=== PATIENT | male | born 1945 | race Caucasian/White ===

== ENCOUNTER 2021-07-18 16:05 | Inpatient (IN) | payer MEDICARE, OTHER ==
[~2021-07-18] VITALS: Ht 182.9 cm; Wt 63.7 kg
[2021-07-18 17:00] VITALS: BP 191/100; PULSE 81; TEMP 97.8
--- NOTE | 2021-07-18 18:29 | NUR ---
Pt has recently arrived to the floor via EMS. Pt was in his clothing which was saturated with urine. Pt was able to move over to the bed without any assistance scooting from EMS cart. Pt tolerated this with no issues. Pt does have a left leg prosthesis which he removed, pt cleaned up and clean gown applied. Dr Alba has been in to see pt. Pt BP is elevated, Dr Alba aware. Pt stated that he has not taken any of his medications for over 2 years. Discussed him taking medications here and he said that he would but they won't do any good. Pt does not have good skin condition. Coccyx is not red at all and back side looks okay. Arms have several areas. Right elbow is skin tear from his fall about a week ago. He does have a sore to his right upper arm, pt reports from his covid vaccine. he also has a scratch to his left arm, he reporst it is from a cat. SEBASTIÁN Banks in with pt now
[2021-07-18 18:37] LABS: BASO # 0.1 K/mm3 (0.0-0.2); BASO % 1.1 % (0.0-2.0); EOS # 0.3 K/mm3 (0.0-0.7); EOS % 3.9 % (0.0-4.0); GRAN # 5.3 K/mm3 (1.4-6.5); GRAN % 70.5 % (42.2-75.2); HEMATOCRIT 46.6 % (42.0-52.0); HEMOGLOBIN 15.1 g/dl (13.5-18.0); LYMPH # 1.2 K/mm3 (1.2-3.4); LYMPH % 16.1 % (20.0-51.0); MEAN CELL VOLUME 90 fl (80.0-100.0); MEAN CORPUSCULAR HEMOGLOBIN 29 pg (27-31); MEAN CORPUSCULAR HGB CONC 32 g/dl (33.0-37.0); MEAN PLATELET VOLUME 9.8 fl (7.4-10.4); MONO # 0.6 K/mm3 (0.1-0.6); PLATELET COUNT 351 K/mm3 (130-400); RED BLOOD COUNT 5.19 M/mm3 (4.20-5.60); REDCELL DISTRIBUTION WIDTH-CV 13.9 % (11.5-14.5)
[2021-07-18 18:44] LABS: INR 1.1 (0.8-3.0); PROTHROMBIN TIME 12.4 SECONDS (9.7-12.8)
[2021-07-18 18:53] LABS: ALBUMIN 3.5 gm/dL (3.4-4.8); BILIRUBIN,TOTAL 0.6 mg/dL (0.2-1.2); CALCIUM 9.2 mg/dL (8.4-10.2); CREATININE, serum 0.77 mg/dL (0.72-1.25); POTASSIUM 4.5 mmol/L (3.5-4.5); TOTAL PROTEIN 6.8 gm/dL (6.2-8.1)
[2021-07-18 19:41] LABS: COLLECTION METHOD CLEAN CATCH
[2021-07-18 19:59] LABS: MUCOUS Present (NOT PRESENT); PH 6 (5-8); SQUAMOUS EPITHELIAL None Seen /hpf (0-10); URINE APPEARANCE Cloudy (CLEAR/HAZY); URINE BACTERIA Rare /hpf (NONE SEEN); URINE BILIRUBIN Negative (NEGATIVE); URINE BLOOD Negative (NEGATIVE); URINE COLOR Yellow (YELLOW); URINE GLUCOSE Negative (NEGATIVE); URINE KETONE Negative (NEGATIVE); URINE LEUKOCYTE ESTERASE 3+ (NEGATIVE); URINE NITRATE Positive (NEGATIVE); URINE PROTEIN(semi-quant) Negative (NEGATIVE); URINE UROBILINOGEN Negative (NEGATIVE)
[2021-07-18 20:05] VITALS: BP 157/67; PULSE 78; TEMP 98.8
[2021-07-19] VITALS (13 sets, daily range): BP systolic 121–154; BP diastolic 67–85; PULSE 54–87; TEMP 68–98.2
--- NOTE | 2021-07-19 00:20 | NUR ---
Received report from day shift. Patient alert and oriented. Patient here for right femur fracture. Assessment performed. Patient has multiple skin tears and abrasions along back and arms. PM meds administered. Patient resting in bed with call light near. Instructed on NPO at midnight.
--- NOTE | 2021-07-19 08:08 | NUR ---
Patient has below the knee ambutation on left leg, so no pedal pulses performed. States tear on right elbow, abression Right arm, small abrasion noted on back side
--- NOTE | 2021-07-19 09:30 | NUR ---
TELE CALLED AND REPORTED PATIENT WENT FROM [facility] IN THE -[facility] TO [facility] IN THE -'S. ASYMPTOMATIC. PATIENT HAS BEEN CLEARED BY CARDS FOR SURGERY TODAY. HOSPITALIST NOTIFIED.
--- NOTE | 2021-07-19 12:47 | NUR ---
Patient resting comfortable in bed, bed in low position call light in place. Resident is not complaining of pain, vitals signs WNL Will continue to monitor patient throughout shift.
--- NOTE | 2021-07-19 13:56 | NUR ---
First visit from the world renowned chef and restaurant owner. No needs right now.
--- NOTE | 2021-07-19 14:10 | NUR ---
PATIENT IS INCREASINGLY AGGITATED/CONFUSED. PATIENT HAD A HARD TIME SAYING WHAT HE WANTED TO SAY AND IS SLURRING HIS WORDS. PATIENT WAS FINALLY ABLE TO EXPRESS HIS CONCERN FOR HIS HORSES AND THAT THEY NEED FEED/WATERED. CALLED AND LEFT MESSAGE FOR FAMILY, AWAITING A RETURN CALL. PATIENT DOESN'T SEEMS TO REMEMBER OR CARE ABOUT HIS BROKEN LEG. STAFF WAS ABLE TO CALM HIM DOWN FOR NOW. WILL MONITOR.
--- NOTE | 2021-07-19 14:44 | NUR ---
Pharmaceutical Sales Specialist met with patient to discuss discharge planning. Patient lives alone in [place], [place] but advised his son, Mac (ph#[phone]) lives on the property. Patient sees Dr. Arana for primary care and obtains medications from [facility] in [place]. Patient has a history of left BKA and uses a prosthesis. Patient also has a wheelchair and walker at home. Patient reports that he is normally independent with ADLS. Patient reports his son is his DPOA-HC. SW discussed post acute rehab with patient who questioned the need for rehab then invited SW to feel his arm muscles. Patient does not think he will need rehab. Patient to have surgery today, then will have PT/OT eval. Discharge Plan: Will likely need placement
--- NOTE | 2021-07-19 14:50 | NUR ---
PATIENT GOING DOWN TO OR VIA BED. CONSENT ON CHART. PRE-OP FLUIDS INFUSING VIA GRAVITY. TELE NOTIFIED OF PATIENT GOING TO OR. PATIENT OFF FLOOR.
--- NOTE | 2021-07-19 17:20 | NUR ---
PATIENT IS BACK IN ROOM 325 POST OP. PATIENT IS VERY DROWSY AND CONFUSED. PATIENT SLURRING WORDS AND FALLING ASLEEP DURING ASSESSMENT. PACU REPORTED PATIENT DIDN'T KNOW WHERE HE WAS OR WHAT YEAR IT WAS. PATIENT BECOMES AGGITATED FROM TIME TO TIME AND TRIES TO GET UP. BEFORE GOING DOWN TO SURGERY PATIENT STATED "I USUALLY WAKE UP IN RESTRAINTS". WILL MONITOR COGNITION. VSS. PATIENT APPEARS COMFORTABLE WITH NO NEEDS AT THIS TIME. PACU ALSO REPORTED HE COUGHED UP THICK, GREEN MUCUS WHEN COUGHING. NO COUGHING AT THIS TIME. RIGHT HIP DRESSING IS CD&I WITH GAUZE & TEGA. SCD'S TO RLE. LEFT BKA HISTORY. HEAD TO TOE ASSESSMENT COMPLETE. PATIENT SLEEPING NOW. CALL LIGHT IN REACH. BED ALARM ON. ROOM ACCROSS FROM NURSING STATION DUE TO HIGH FALL RISK.
--- NOTE | 2021-07-19 18:40 | NUR ---
DURING SHIFT REPORT, TELE CALLED REPORTING PATIENT WAS OFF HIS LEADS. IN A SHORT AMOUNT OF TIME PATIENT PULLED OFF HIS TELE, PULLED OUT HIS IV SITE, TOOK HIS B/P CUFF OFF AND WAS ATTEMPTING TO GET UP. PATIENT 2-3 ASSIST UP IN BED AND TO GET CLEANED UP. TELE BACK ON. NEW IV SITE STARTED INTO LEFT AC WITH POST OP FLUIDS INFUSING. POST OP VITALS NOW BACK ON. PATIENT RE-ORIENTED. BED ALARM ON. CALL LIGHT IN REACH. MITTS AT BEDSIDE IF NEEDED. REPORTING OFF TO PRESCHOOL HEAD TEACHER.
--- NOTE | 2021-07-19 20:00 | NUR ---
Pt. sitting up in bed. Pt. is alert and confused. IV to lt. ac patent, IV fluids infusing. Dressing to rt. hip CDI. Pt. denies pain but grimices severely with movement. Will give pain meds per orders. Pt. denies further needs, call light within reach. Bed alarm on.
[2021-07-20 03:44] VITALS: BP 153/77; PULSE 72; TEMP 98.4
[2021-07-20 06:44] LABS: INR 1.2 (0.8-3.0); PROTHROMBIN TIME 13.8 SECONDS (9.7-12.8)
[2021-07-20 06:52] LABS: CALCIUM 8.4 mg/dL (8.4-10.2); CREATININE, serum 0.71 mg/dL (0.72-1.25); POTASSIUM 4.3 mmol/L (3.5-4.5)
[2021-07-20 07:53] VITALS: BP 125/67; PULSE 72; TEMP 98.2
--- NOTE | 2021-07-20 10:35 | NUR ---
Patient sitting in recliner with assistance from pt, he is alert and oriented x3, pain controlled tolerated vital signs WNL, pt is comforatble call light in place. Will continue to monitor resident throughout shift.
[2021-07-20 11:37] VITALS: BP 110/61; PULSE 82; TEMP 98.2
--- NOTE | 2021-07-20 14:35 | NUR ---
Chief Executive contacted patient's son, Mac to discuss discharge planning. SW reviewed PT/OT recommendation for post acute rehab. Mac is in agreement with rehab for patient, however he advised patient would likely resist this. SW followed up with patient to review PT/OT recommendation. Patient states he has been to both [facility] and [facility] in the past before and would like referrals sent to both places. SW contacted [facility], [facility], and [facility] and faxed referrals. Esmer at [facility] advised they could possibly take over the weekend, but it depends day to day. Esmer requested call made to [facility] line (#[phone]) to check on availability over the weekend if patient ready to discharge. Discharge Plan: Pending referrals to [facility], [facility] and [facility]
--- NOTE | 2021-07-20 15:11 | NUR ---
CHRIST Lawler contacted Rel[facility] Dispatcher and advised patient stated his first preference is [facility]. SW contacted Delphine, Medical Dir at [facility] who advised they can accept patient but cannot take admissions over the weekend.
[2021-07-20 15:49] VITALS: BP 127/57; PULSE 72; TEMP 98
[2021-07-20 20:20] VITALS: BP 123/68; PULSE 71; TEMP 97.7
--- NOTE | 2021-07-20 21:00 | NUR ---
PT IN BED, CONFUSED BUT COOPERATIVE. TAKES HS MEDS WITHOUT PROBLEM. IVF TO LEFT AC DC'D, NO ORDER. ROCEPHIN GIVEN IV PER ORDER. VOIDING PER URINAL. BED ALARM ON.
[2021-07-21] VITALS (7 sets, daily range): BP systolic 138–181; BP diastolic 57–79; PULSE 72–93; TEMP 97.5–98.6
--- NOTE | 2021-07-21 00:10 | NUR ---
PT HAS SCOOTED SELF TO END OF BED SEVERAL TIMES AND REMOVED TELEMETRY. ABLE TO REDIRECT. PT WANTS TO GO HOME, SAYS HE HAS "STUFF TO DO". REDRESSED RT ELBOW SKIN TEAR. APPLIED NEW DRSG TO LEFT AC INT SITE.
--- NOTE | 2021-07-21 02:15 | NUR ---
PT HAS BLOODY INT SITE TO LEFT AC, REMOVED. REFUSES TO HAVE ANOTHER SITE STARTED AT THIS TIME.
--- NOTE | 2021-07-21 03:27 | NUR ---
GABINO GAN AT STAFF, HAS REMOVED TELEMETRY >5 TIMES THIS SHIFT, IS REFUSING TO PUT BACK ON, [place] IS AWARE.
--- NOTE | 2021-07-21 03:50 | NUR ---
PT SITTING AT EDGE OF BED, HAD WALKER AND WAS TRYING TO GET UP ON RT LEG, HAS AKA TO LEFT LEG. WAS BELLIGERENT, YELLING AT STAFF AND PUTTING HIS FINGER IN STAFF FACES. SECURITY WAS CALLED.
--- NOTE | 2021-07-21 04:01 | NUR ---
SLOANE CRUZ NOTIFIED OF PTS AGGRESSIVE BEHAVIORS. ORDER FOR HALDOL.
--- NOTE | 2021-07-21 04:20 | NUR ---
HALDOL 2MG IM RVG GIVEN. ASSISTED UP IN BED. SUSTAINED SKIN TEAR TO LEFT UPPER ARM, STERI STRIPPED AND COVERED WITH TELFA DRSG. LEFT FOREARM WITH BANDAID OVER SMALL SKIN TEAR. RT HIP DRSG INTACT. IS CONFUSED TO PLACE AND TIME. SECURITY CALMED PT.
--- NOTE | 2021-07-21 04:30 | NUR ---
PT USES URINAL, HAS CALMED A LITTLE. TV ON. PT TALKING ABOUT PICKING UP FEED IN [place] AND HE DROVE HIMSELF HERE AND HIS VEHICLE IS IN THE PARKING LOT. LOOKED AT HIS PHONE, WAS UNSURE HOW TO CALL ANYONE. ENCOURAGED PT TO REST. STILL TALKING ABOUT HOW TO GET HIS JEANS ON AND PROSTHETIC ON TO LEAVE.
--- NOTE | 2021-07-21 05:06 | NUR ---
PT REFUSES LAB THIS AM.
--- NOTE | 2021-07-21 06:00 | NUR ---
PT HAD TO HAVE SITTER IN ROOM D/T IMPULSIVE BEHAVIORS. HAS CALLED SON SUCCESSFULLY DEMANDING TO LEAVE, REPORTS BEING "HELD AGAINST HIS WILL".
--- NOTE | 2021-07-21 09:30 | NUR ---
Patient continues to be restless & not oriented to place or time. Multiple attempts made to give patient am medication. He absolutelty refuesed. Education provided on importance of his medications, he has no interest. High fall risk protocol followed, a staff member remains at bedside at most times due to his restlessness and him wanting to sit at end of bed.
--- NOTE | 2021-07-21 10:54 | NUR ---
This Clinical Support Nurse is notified that patient is ready for discharge. This Clinical Support Nurse followed up with [facility] , and left confidential voice message with Susan inquiring about bed availability. This Clinical Support Nurse is awaiting call back for discharge plan confirmation. *Discharge plan: Awaiting follow up contact to confirm plan [facility]*
--- NOTE | 2021-07-21 11:23 | NUR ---
Dishroom Attendant is informed patient has confusion and is oriented only to self at this time. Cheryl LOWERY contacted patient son Mac by telephone to discuss plan of care. Son is debating taking patient home vs. SNF and inquires further about what would happen if they d/c early from recommended plan of care. This Dishroom Attendant contacted patient son Mac: Mac is educated on potential DFS adult protective services for AMA discharge in event there is concern for safety. Referred plans reviewed. Son expresses distress regarding patient right to self-determination vs. aging and recommended plan of care. He asks numerous "what if" questions and appears to accept information shared. Son offers suggestions to help improve patient mood/cognition, including nicotine patch for history of smoking and/or going outside as he gets "cooped up" indoors and spends at least two hours a day outside on his porch at home. Son does not support a follow up to [facility] at this time, and he believes that patient will be more compliant and the family will be able to better provide support if he is discharged to [facility] on Friday, as they are accepting. PA and hospitalist updated. *Discharge plan: [facility] when available vs. [facility] placement on Friday (can accept)*
--- NOTE | 2021-07-21 12:31 | NUR ---
Patient has sat at edge of bed most of the day. He has been one to [facility] for his safety. He is high fall risk, protocol followed. He is oriented to self, he wants to get his car and drive home. Multipe times have educated him on where he is in [facility], not [place].
--- NOTE | 2021-07-21 13:59 | NUR ---
Patient continues to be restless and wanting to leave the hospital. Patient ambulated the halls with 2 assist with his prostetic on and boots. Gaitbelt and walker used. He ambulated about 100 feet before becoming tired. He was assisted into the recliner chair with alarm on. Ice cream provided for a snack.
--- NOTE | 2021-07-21 14:19 | NUR ---
Patient assisted into the bathroom, he voided. New brief applied as well for incontience cares. Patient just continues to want to leave the hospital. High fall risk followed.
--- NOTE | 2021-07-21 15:14 | NUR ---
Patient up and ambulated halls again with walker & gaitbelt about 50 feet. Patient in relcliner chair & positioned in room so he can watch out the window toward the baseball field . He seems happier being able to watch people out the window.
--- NOTE | 2021-07-21 15:50 | NUR ---
Patient has been on the phone visiting. Continue to follow high fall risk.
--- NOTE | 2021-07-21 17:04 | NUR ---
Patient sitting up in chair. He removed stump, reports its getting swollen. Dinner ordered. Patient still oriented to self but not place or time. He was concerned about going to get feed for his horses. Re oriented as needed. Will monitor.
--- NOTE | 2021-07-21 18:13 | NUR ---
Patient did well with dinner. He has been reading magazines this evening. High fall risk protocol followed.
--- NOTE | 2021-07-21 22:22 | NUR ---
Received report from day shift. Patient here for right hip fracture. Patient in chair and alert to self only. Assessment performed. Patient removed IV during day shift. IV fluids not able to be administered. Called Michelle for guidance. PO ABX ordered. Patient non-compliant with PO meds at first. After discussion, patient took PO meds and willingly returned to bed for the night. Surgical site addressed, no drainage, CDI. Patient resting in bed with alarm on. Call light near.
[2021-07-22 03:36] VITALS: BP 163/80; PULSE 102; TEMP 97.4
[2021-07-22 06:21] LABS: BASO # 0.1 K/mm3 (0.0-0.2); BASO % 0.9 % (0.0-2.0); EOS # 0.3 K/mm3 (0.0-0.7); EOS % 3.3 % (0.0-4.0); GRAN # 5.5 K/mm3 (1.4-6.5); LYMPH # 1.1 K/mm3 (1.2-3.4); MEAN CELL VOLUME 89 fl (80.0-100.0); MEAN CORPUSCULAR HEMOGLOBIN 30 pg (27-31); MEAN CORPUSCULAR HGB CONC 33 g/dl (33.0-37.0); MEAN PLATELET VOLUME 10.1 fl (7.4-10.4); MONO # 0.9 K/mm3 (0.1-0.6); MONO % 11.3 % (1.7-9.3); PLATELET COUNT 369 K/mm3 (130-400); RED BLOOD COUNT 4.74 M/mm3 (4.20-5.60); REDCELL DISTRIBUTION WIDTH-CV 13.4 % (11.5-14.5)
[2021-07-22 06:25] LABS: CALCIUM 8.8 mg/dL (8.4-10.2); CREATININE, serum 0.75 mg/dL (0.72-1.25); POTASSIUM 3.5 mmol/L (3.5-4.5)
--- NOTE | 2021-07-22 08:00 | NUR ---
PATIENT IS ORIENTED X2 BUT DISPLAYS FREQUENT CONFUSION/FORGETFULNESS. NOTED HR OF 102, IRREGULAR AT BASELINE. SEE CARDIAC HX. TELE COMPLETED YESTERDAY. ALL OTHER VSS. NO COMPLAINTS. HEAD TO TOE ASSESSMENT COMPLETE. AM MEDS GIVEN. BREAKFAST TRAY AT BEDSIDE. VOIDING USING URINAL. NO IV SITE. SCD'S CURRENTLY OFF. LEFT LEG PROSTETIC OFF. GOOD PEDAL PULSE TO RLE. NO OTHER NEEDS AT THIS TIME. CALL LIGHT IN REACH. BED ALARM ON.
[2021-07-22 08:05] VITALS: BP 138/75; PULSE 86; TEMP 97.6
--- NOTE | 2021-07-22 09:00 | NUR ---
PATIENT WANTING TO GET UP TO BEDSIDE CHAIR. PATIENT ATTEMPTED TO PUT ON LLE PROSTETIC SEVERAL TIMES AND UPON STANDING WITH WALKER FELT LIKE HIS PROSTETIC WAS LOOSE. PT CONTACTED AND STAFF ATTEMPTED TO ASSIST PATIENT TO ADJUST PROSTETIC. PATIENT NOW ASSISTED 1-2 ASSIST WITH WALKER INTO BEDSIDE CHAIR. CHAIR ALARM ON. CALL LIGHT IN REACH.
[2021-07-22 12:00] VITALS: BP 123/80; PULSE 76; TEMP 97.9
[2021-07-22 15:23] LABS: INR 1.3 (0.8-3.0); PROTHROMBIN TIME 14.4 SECONDS (9.7-12.8)
[2021-07-22 15:55] VITALS: BP 136/78; PULSE 83; TEMP 98
[2021-07-22 19:20] VITALS: BP 161/80; PULSE 85; TEMP 98.3
--- NOTE | 2021-07-22 22:22 | NUR ---
ALERT TO SELF,SITUATION. PT IS HAPPY TO GET OUT OF ROOM WHEELING AROUND IN W/C . SON WAS UPDATED AT SHIFT CHANGE BY DAY RN OF ALBERTO TOMORROW. PM MEDS GIVEN. PT PLEASENT TONIGHT. CALL LIGHT WI REACH. BED ALARM ON.
[2021-07-23 00:12] VITALS: BP 130/87; PULSE 93; TEMP 97.7
[2021-07-23 03:51] VITALS: BP 148/78; PULSE 84; TEMP 97.7
--- NOTE | 2021-07-23 06:03 | NUR ---
RESTED THROUGH THE NIGHT WITHOUT INCIDENT. NEEDS MET.
[2021-07-23] MEDS ORDERED: CEFTIN 250250 MG/TAB PO (07:44)
[2021-07-23] MEDS ORDERED: TYLENOL 500MG500 MG PO (07:45)
[2021-07-23] MEDS ORDERED: ASPI325T6 PO (07:45)
[2021-07-23] MEDS ORDERED: NORVASC 10MG10 MG PO (07:45)
[2021-07-23] MEDS ORDERED: NICODERM C21 MG/PATC TD (07:45)
[2021-07-23] MEDS ORDERED: COREG12.5 MG PO (07:45)
[2021-07-23] MEDS ORDERED: LIPITOR 40MG TA40 MG PO (07:45)
[2021-07-23] MEDS ORDERED: DUO-KAPS1 CAP PO (07:46)
[2021-07-23] MEDS ORDERED: SENEXON-S 50-81 EACH PO (07:46)
[2021-07-23] MEDS ORDERED: CALCIUM 600600 MG PO (07:46)
[2021-07-23] MEDS ORDERED: VITAMIN C500 MG PO (07:46)
[2021-07-23 08:42] VITALS: BP 139/77; PULSE 74; TEMP 98
--- NOTE | 2021-07-23 09:22 | NUR ---
ASSESSMENT COMPLETE. PT. SITTING UP AT SIDE OF THE BED AND EATING BREAKFAST. PT. A&O X4. DENIES PAIN AND NAUSEA. DRESSING ON RIGHT HIP CD&I. BED ALARM ON. CALL LIGHT WITHIN REACH. NO FURTHER NEEDS AT THIS TIME.
--- NOTE | 2021-07-23 09:40 | NUR ---
[facility] reports that they are able to accept the patient. The clinical team is ready to discharge the patient today. MEET contacted and updated the patient's son, Mac. Mac confirms that they want to pursue with [facility]. He states that his , Deepika (ph#[phone]), plans to transport the patient. MEET read the IM form outloud to Mac over the phone. Mac verbalized understanding and of discharge today. He gave SW approval to sign form on his behalf. MEET student placed a copy in the patient's discharge packet. MEET contacted and confirmed transportation from Deepika. Deepika plans to be at the hospital around [phone]. MEET updated the patient's RN and Candy at [facility]. The patient is to discharge today, 07/23, to [facility] for a skilled stay. Transportation to be by private vehicle, via the patient's [id number]. No additional needs at this time.
--- NOTE | 2021-07-23 10:25 | NUR ---
COVID SWAB OBTAINED AND SENT TO LAB, PER ORDERS, FOR PENDING SWB TRANSFERS.
[2021-07-23 12:00] VITALS: BP 103/57; PULSE 68; TEMP 97.3
--- NOTE | 2021-07-23 14:30 | NUR ---
PT. DISCHARGING TO [facility]. INFORMATION PACKET GIVEN TO [id number]. PT. TRANFERING BY POV. CALLED REPORT TO FACILITY NURSE. PT. DRESSED AND PACK AND DISHCHARGED.
== END 2021-07-23 14:30 | DRG 480 ==
LOC: MEDICAL 16:05 → SURG 17:00
PROVIDERS: Orthopaedic Surgery; Physician Assistant; ADMIT Internal Medicine
PROC: 0QH634Z Insertion of Internal Fixation Device into Right Upper Femur, Percutaneous Approach (ICD-10-PCS; principal; 2021-07-19 16:00)
DX: S72.011A Unspecified intracapsular fracture of right femur, initial encounter for closed fracture (principal); E43 Unspecified severe protein-calorie malnutrition; I48.20 Chronic atrial fibrillation, unspecified; I42.9 Cardiomyopathy, unspecified; N39.0 Urinary tract infection, site not specified; F03.91 Unspecified dementia, unspecified severity, with behavioral disturbance; F05 Delirium due to known physiological condition; G93.40 Encephalopathy, unspecified; Z68.1 Body mass index [BMI] 19.9 or less, adult; Z66 Do not resuscitate; I10 Essential (primary) hypertension; D75.1 Secondary polycythemia; F17.210 Nicotine dependence, cigarettes, uncomplicated; R09.02 Hypoxemia; W01.0XXA Fall on same level from slipping, tripping and stumbling without subsequent striking against object, initial encounter; Y93.89 Activity, other specified; Y92.008 Other place in unspecified non-institutional (private) residence as the place of occurrence of the external cause; Z86.73 Personal history of transient ischemic attack (TIA), and cerebral infarction without residual deficits; Z85.828 Personal history of other malignant neoplasm of skin; Z20.822 Contact with and (suspected) exposure to COVID-19
CPT/HCPCS: 99231-AI; 99232-AI; 99233-AI; 99239; A9284; C1713; J0690; J0696; J1630; J2405; J2704; J7121